=== PATIENT | female | born 1985 | race Caucasian/White ===

== ENCOUNTER 2017-11-06 06:08 | Emergency (ER) | payer OTHER, MEDICAID, SELFPAY ==
--- NOTE | 2017-11-06 06:11 | ED_ITS ---
HPI - Skin/Abscess/Foreign Bdy General Chief complaint: Skin/Abscess/Foreign Body Stated complaint: possible spider bit on left wrist and leg Time Seen by Provider: 11/06/17 06:10 Source: patient Mode of arrival: ambulatory Limitations: no limitations History of Present Illness HPI narrative: 32-year-old female here for evaluation of which she states is a spider bite on her left wrist and also on her left leg. She states that has been worsening over the past several days. Has never had anything like this before. She states that the wound on her left wrist did drain yesterday. Has not tried anything for prior to arrival. Related Data Previous Rx's Medication Instructions Recorded etonogestrel-ethinyl estradiol 1 icr VG Q28D #1 icr 05/24/16 [NuvaRing] doxycycline hyclate 50 mg PO BID #60 cap 07/01/16 benzoyl peroxide 60 gm TOPICAL QDAY #60 tube 07/30/16 diazepam 5 mg PO BID #30 tab 07/30/16 erythromycin with ethanol 1 que TOPICAL QDAY #30 gm 07/30/16 buprenorphine-naloxone 2.5 tab SUBLINGUAL QDAY #75 tab 08/20/16 doxycycline hyclate 100 mg PO SEE INSTRUCTIONS #28 cap 10/27/16 sulfamethoxazole-trimethoprim 1 tab PO BID 10 Days #20 tab 11/06/17 Allergies Allergy/AdvReac Type Severity Reaction Status Date / Time codeine Allergy Mild ITCHING Unverified 06/01/17 12:32 bupropion AdvReac Mild NAUSEA, Unverified 06/01/17 12:32 SHAKEY seasonal allergies-spring & Allergy Mild Uncoded 06/01/17 12:32 summer Review of Systems Constitutional Denies fever(s) Musculoskeletal Comments: No wrist pain No lower extremity joint pain Integumentary/Breasts Comments: Wound to the left wrist and left upper leg Hematologic/Lymphatic Reports easy bleeding and Reports easy bruising [facility] Medical History Acne (Chronic 1999) Anxiety (Chronic 2004) Depression (Chronic 1997) History of heavy periods (Chronic 2006) Painful menstrual periods (Chronic 2006) Scoliosis (Chronic ~1997) Shoulder pain (Chronic 2009) Chicken pox (Resolved ~1991) Genital warts (Resolved) Kidney stones (Resolved 2009) Ovarian cyst (Resolved 2010) Status post normal childbirth (Resolved 1999) Surgical History Anesthesia (Resolved) History of left salpingo-oophorectomy (Resolved 2013) History of surgery (Resolved 1999) History of tonsillectomy (Resolved 1991) Family History Father Diabetes mellitus Grandfather Primary cancer of bone marrow Unknown No problems noted. Social History Smoking Status: Never smoker Exam Initial Vital Signs Initial Vital Signs: Vital Signs Temperature 98.2 F 11/06/17 06:20 Pulse Rate 114 H 11/06/17 06:20 Respiratory Rate 18 11/06/17 06:20 Blood Pressure 142/83 H 11/06/17 06:20 Pulse Oximetry 99 11/06/17 06:20 Const Orientation: alert, awake and oriented x3 Skin Other: Patient with a 4 x 3 cm swelling/abscess to the left wrist. Volar aspect. Just proximal to the joint. Ulnar aspect. Without surrounding cellulitis. Patient with a 2 x 2 cm area abscessed on the left anterior thigh with a total of 6 x 6 cm area of surrounding erythema. Neuro Other: Sensation intact to light touch left upper and left lower extremity Extrem Other: Left hip unremarkable Left 1st unremarkable Psych Appearance: grossly normal and well kempt Procedures Abscess I/D Site: upper extremity and lower extremity Side (if applicable): left Local Anesthetic: lidocaine 1% Amount of anesthesia used (mL): 6 Technique: incised with #11 blade Amount of fluid expressed (mL): 2 Irrigation: Yes Packing used?: none Course Vital Signs - 8 hr 11/06/17 06:20 Temperature 98.2 F Pulse Rate 114 H Respiratory Rate 18 Blood Pressure 142/83 H Pulse Oximetry 99 MDM - Skin/Abscess/Foreign Bdy MDM Narrative Medical decision making narrative: Bedside ultrasound shows fluid pockets of both the wrist and the left lower extremity abscess. They were incised and drained as described above. Patient does use IV drugs. She states she did not inject herself at this areas. Secondary to the cellulitis of the left lower extremity will discharge home with antibiotics. She was given her 1st dose of antibiotics here in the emergency department. She was given care instructions. She expressed understanding and agreement with plan Discharge Plan Departure Patient Disposition: Home Clinical Impression: Abscess Instructions: Incision and Drainage of a Skin Abscess, DI for Skin Abscess Activity Restrictions/Additional Instructions: Keep the areas covered with the bandages. Take all of the antibiotics that your prescribed today. Expect some oozing from the area. You can shower like normal in use soap and water. Return to the emergency department for any new or worsening symptoms Prescriptions: New sulfamethoxazole-trimethoprim 800-160 mg tablet 1 tab PO BID 10 Days Qty: 20 RF: 0 No Action etonogestrel-ethinyl estradiol [NuvaRing] 1 EACH ring 1 icr VG Q28D Qty: 1 RF: 11 doxycycline hyclate 50 MG capsule 50 mg PO BID Qty: 60 RF: 4 benzoyl peroxide 10 % gel 60 gm Topical QDAY Qty: 60 RF: 2 erythromycin with ethanol 2 % gel 1 que Topical QDAY Qty: 30 RF: 2 diazepam 5 MG tablet 5 mg PO BID Qty: 30 RF: 0 buprenorphine-naloxone 8 MG/2 MG tablet, sublingual 2.5 tab Sublingual QDAY Qty: 75 RF: 1 doxycycline hyclate 100 MG capsule 100 mg PO SEE INSTRUCTIONS Qty: 28 RF: 0
[2017-11-06 06:20] VITALS: BP 142/83; PULSE 114; RESP 18; TEMP 36.8; O2SAT 99; BMI 22.8
[2017-11-06] MEDS: SULFA/TRIMETH 800/160 (DS) TABLET 1 TAB PO (06:52)
--- NOTE | 2017-11-06 07:16 | PC.NURSE ---
Late entry at 0650-I&D completed by Dr Madrigal on L thigh and L volar wrist. I&D sites covered with 4x4 and wrapped with kurling and covered with tubular gauze to secure the dressing. Pt tolerated well
== END 2017-11-06 06:56 | disposition home or self-care (01) ==
PROVIDERS: Emergency Provider Emergency Medicine; Family Provider Family Medicine; PCP Family Medicine
DX: L02.414 Cutaneous abscess of left upper limb (principal)
CPT/HCPCS: 10060; 99283

== ENCOUNTER 2021-01-25 16:22 | Emergency (ER) | payer OTHER, SELFPAY ==
[2021-01-25] VITALS (16 sets, daily range): BP systolic 119–151; BP diastolic 71–95; PULSE 91–112; RESP 19–47; TEMP 36.7; O2SAT 89–97; BMI 32.3
--- NOTE | 2021-01-25 16:54 | DI.RAD.S_ITS ---
PROCEDURE: XR CHEST 2V INDICATIONS: shortness of breath TECHNIQUE: 2 views of the chest were acquired. COMPARISON: None. FINDINGS: Surgical changes and devices: None. Lungs and pleura: Lungs are clear. No pleural effusions or pneumothorax. Mediastinum: Mediastinal contours are normal. Heart size is normal. Bones and chest wall: No suspicious bony abnormalities. Soft tissues appear unremarkable. IMPRESSION: 1. No acute cardiopulmonary disease. Dictated by: Christoph Rios M.D. on 01/25/2021 at 16:19 Approved by: Christoph Rios M.D. on 01/25/2021 at 16:19
[2021-01-25] MEDS: ALBUTEROL 2.5 MG/3 ML NEB (ADULT) INH (17:20)
[2021-01-25 17:27] LABS: COVID19 -Nasal RAPID Negative (Negative)
--- NOTE | 2021-01-25 18:50 | ED.SOB ---
HPI - SOB/Dyspnea General Chief Complaint: Shortness of Breath/Dyspnea Stated Complaint: shortness of breath x7 days Time Seen by Provider: 01/25/21 16:45 Source: patient Mode of arrival: Family Vehicle Limitations: no limitations History of Present Illness HPI Narrative: 35F former smoker with history of prior IVDA and recent COVID presents with runny nose, sore throat, wheezing and a dry hacking cough for the past few days. She denies any fever chills but generally feels unwell. She denies any chest pain, nausea or vomiting. She is not dizzy nor weak or lightheaded. She states that she takes a big deep breath it causes her to cough. She does have difficulty catching her breath. She states that she has been vaping. She has no GI complaints Related Data Previous Rx's Medication Instructions Recorded etonogestrel 0.12 mg-ethinyl 1 icr VG Q28D #1 icr 05/24/16 estradiol 0.015 mg/24 hr vaginal ring (NuvaRing) doxycycline hyclate 50 mg capsule 50 mg PO BID #60 cap 07/01/16 benzoyl peroxide 10 % topical gel 60 gm TOPICAL QDAY #60 tube 07/30/16 diazepam 5 mg tablet 5 mg PO BID #30 tab 07/30/16 erythromycin with ethanol 2 % 1 que TOPICAL QDAY #30 gm 07/30/16 topical gel buprenorphine 8 mg-naloxone 2 mg 2.5 tab SUBLINGUAL QDAY #75 tab 08/20/16 sublingual tablet doxycycline hyclate 100 mg capsule 100 mg PO SEE INSTRUCTIONS #28 cap 10/27/16 doxycycline hyclate 100 mg tablet 100 mg PO BID #20 tab 01/25/21 prednisone 20 mg tablet 20 mg PO DAILY #5 tab 01/25/21 Allergies Allergy/AdvReac Type Severity Reaction Status Date / Time codeine Allergy Mild ITCHING Verified 01/25/21 18:34 bupropion AdvReac Mild NAUSEA, Verified 01/25/21 18:34 SHAKEY seasonal allergies-spring & Allergy Mild Uncoded 01/25/21 18:34 summer Review of Systems Review of Systems Narrative: GENERAL: Denies chills, fatigue, malaise, fever, sweats. HEENT: Denies sinus pain, ear pain, sore throat, difficulty swallowing, dizziness. RESPIRATORY: see HPI CARDIOVASCULAR: Denies chest pain, palpitations, orthopnea, edema, GASTROINTESTINAL: Denies nausea, vomiting, abdominal pain, diarrhea, constipation, melena. : Denies dysuria, frequency, incontinence, hematuria, urinary retention. MUSCULOSKELETAL: denies weakness, joint pain, or bony pain SKIN: Denies rash, skin lesions, or other NEUROLOGIC: Denies weakness, headache, numbness, change in speech, confusion, seizures, incoordination. PSYCHIATRIC: No concerning psychosocial issues. 12 point review of systems is negative except for those stated above Patient History Medical History (Updated 01/25/21 @ 20:13 by Hernandez Arthur DO) Acne (1999) Anxiety (2004) Chicken pox (~1991) Depression (1997) Genital warts History of heavy periods (2006) Kidney stones (2009) Ovarian cyst (2010) Painful menstrual periods (2006) Scoliosis (~1997) Shoulder pain (2009) Status post normal childbirth (1999) Surgical History (Updated 02/15/18 @ 11:22 by Mariely Pacheco) Anesthesia History of left salpingo-oophorectomy (2013) History of surgery (1999) History of tonsillectomy (1991) Family History (Updated 02/15/18 @ 11:21 by Mariely Pacheco) Father Diabetes mellitus Grandfather Primary cancer of bone marrow Brother No problems noted. Brother No problems noted. Brother No problems noted. Family/Other No problems noted. Family/Other No problems noted. Family/Other No problems noted. Grandmother No problems noted. Mother Adopted Sister No problems noted. Sister No problems noted. Sister No problems noted. Social History Smoking Status: Former smoker Smoking Status: Former smoker tobacco type: cigarettes and vaping alcohol intake frequency: 0-2 drinks per day Substance Use Type: former substance user and heroin Exam Initial Vital Signs Initial Vital Signs: Vital Signs Pulse Rate 108 H 01/25/21 16:49 Pulse Oximetry 91 01/25/21 16:49 Course Orders Ordered: ED Orders 01/25/21 18:48 Respiratory Panel (Film Array) Stat Discontinued Medications Albuterol (Albuterol 2.5 Mg/3 Ml Neb (Adult)) 2.5 mg INH NOW ONE Stop: 01/25/21 17:08 Last Admin: 01/25/21 17:20 Dose: 2.5 mg Documented by: LOGAN Albuterol (Albuterol Hfa Prepack) 1 box MISC SEEINSTR ONE Stop: 01/25/21 19:09 Last Admin: 01/25/21 19:23 Dose: 1 box Documented by: TARI Prednisone (Prednisone 20 Mg Tablet) 40 mg PO NOW ONE Stop: 01/25/21 19:09 Last Admin: 01/25/21 19:23 Dose: 40 mg Documented by: TARI Vital Signs Vital signs: Vital Signs - 8 hr 01/25/21 19:46 01/25/21 20:00 01/25/21 20:01 Pulse Rate 100 H 91 H 95 H Respiratory Rate 20 24 24 Blood Pressure 151/84 H Pulse Oximetry 92 95 95 MDM - SOB/Dyspnea Lab Data Labs: Lab Results 01/25/21 01/25/21 Range/Units 16:43 18:48 Chlamy pneumoniae PCR Not detected (Not Detect) Adenovirus (PCR) Not detected (Not Detect) B. pertussis DNA (PCR) Not detected (Not Detecte) B.parapertussis DNA PCR Not detected (Not Detecte) Coronavirus OC43 (PCR) Not detected (Not Detect) Coronavirus HKU1 (PCR) Not detected (Not Detect) Coronavirus 229E (PCR) Not detected (Not Detect) SARS-CoV-2 (PCR) Negative Not detected (Negative) Coronavirus NL63 (PCR) Not detected (Not Detect) Human Metapneumovir PCR Not detected (Not Detect) Influenza Type A (PCR) Not detected (Not Detect) Influenza Type B (PCR) Not detected (Not Detect) M. pneumoniae (PCR) Not detected (Not Detect) Parainfluenza 1 (PCR) Not detected (Not Detect) Parainfluenza 2 (PCR) Not detected (Not Detect) Parainfluenza 3 (PCR) Not detected (Not Detect) Parainfluenza 4 (PCR) Not detected (Not Detect) RSV (PCR) Not detected (Not Detect) Entero/Rhino (PCR) Not detected (Not Detect) MDM Narrative Medical decision making narrative: Patient with mild upper respiratory symptoms and a very reassuring history and physical. Vitals are stable, chest x-ray is clear and she demonstrates no need for supplemental oxygen her significant respiratory distress. She feels tremendous relief after bronchodilators and steroids. She is treated for atypical pneumonia, given return precautions and questions have been answered to her apparent satisfaction Discharge Plan Departure Patient Disposition: Home Clinical Impression: Atypical pneumonia, Acute bronchospasm Instructions: Atypical Pneumonia Activity Restrictions/Additional Instructions: *You have been diagnosed with [atypical pneumonia and bronchospasm. Your physical exam, vital signs and chest x-ray are very reassuring *What to do: *Please continue to take your regular medications as directed. [x ] New medication prescriptions sent to your pharmacy: [ Rm] [ ] New medication written as a paper prescription [ ] No new medications given *Please follow up with your primary care provider in 2-3 days, call for an appointment. Let them know you were seen in the Emergency Department and that we ask that you be seen in follow up. We will electronically transmit a record of today's note if your PCP is in our system *If you do not have a primary care provider please contact the [facility] Resource line at [phone]. They will ask some questions about your medical history and help get you set up with a doctor in the community. *Return to Emergency Department if you should have any new, worsening or concerning symptoms, such as [fever greater than 101 F, shaking chills, worsening pain, persistent vomiting or other bothersome symptoms] Prescriptions: New prednisone 20 mg tablet 20 mg PO DAILY Qty: 5 0RF Rx Instructions: administer with food or milk doxycycline hyclate 100 mg tablet 100 mg PO BID Qty: 20 0RF No Action etonogestrel-ethinyl estradiol [NuvaRing] 1 EACH ring 1 icr VG Q28D Qty: 1 11RF doxycycline hyclate 50 MG capsule 50 mg PO BID Qty: 60 4RF benzoyl peroxide 10 % gel 60 gm Topical QDAY Qty: 60 2RF erythromycin with ethanol 2 % gel 1 que Topical QDAY Qty: 30 2RF diazepam 5 MG tablet 5 mg PO BID Qty: 30 0RF buprenorphine-naloxone 8 MG/2 MG tablet, sublingual 2.5 tab Sublingual QDAY Qty: 75 1RF doxycycline hyclate 100 MG capsule 100 mg PO SEE INSTRUCTIONS Qty: 28 0RF Referrals: Richard Medina MD [Primary Care Provider] -
[2021-01-25] MEDS: ALBUTEROL HFA PREPACK 1 BOX MISC (19:23)
[2021-01-25] MEDS: predniSONE 20 MG TABLET 40 MG PO (19:23)
[2021-01-25 19:45] LABS: Adenovirus Not Detected (Not Detect); B. parapertussis Not Detected (Not Detecte); Bordetella pertussis Not Detected (Not Detecte); Chlamydophila pneumoniae Not Detected (Not Detect); Coronavirus 229E Not Detected (Not Detect); Coronavirus HKU1 Not Detected (Not Detect); Coronavirus NL 63 Not Detected (Not Detect); Coronavirus OC43 Not Detected (Not Detect); Human Metapneumovirus Not Detected (Not Detect); Human Rhinovirus/Enterovirus Not Detected (Not Detect); Influenza A Not Detected (Not Detect); Influenza B Not Detected (Not Detect); Mycoplasma pneumoniae Not Detected (Not Detect); Parainfluenza Virus 1 Not Detected (Not Detect); Parainfluenza Virus 2 Not Detected (Not Detect); Parainfluenza Virus 3 Not Detected (Not Detect); Parainfluenza Virus 4 Not Detected (Not Detect); Respiratory Syncytial Virus Not Detected (Not Detect); SARS- CoV-2 Not Detected (Not Detecte)
== END 2021-01-25 20:19 | disposition home or self-care (01) ==
PROVIDERS: Emergency Medicine; Emergency Provider Emergency Medicine; Family Provider Family Medicine; PCP Family Medicine
DX: J18.8 Other pneumonia, unspecified organism (principal); J98.01 Acute bronchospasm; R03.0 Elevated blood-pressure reading, without diagnosis of hypertension; Z87.891 Personal history of nicotine dependence; Z20.822 Contact with and (suspected) exposure to COVID-19
CPT/HCPCS: 71046; 87633; 87635; 93005; 93010; 94640; 99284; C9803; J7613